=== PATIENT | female | born 1980 | race Caucasian/White ===

== ENCOUNTER 2016-11-21 14:01 | Emergency (ER) | payer OTHER, MEDICARE ==
[~2016-11-21] VITALS: Ht 154.9 cm; Wt 57.0 kg
[~2016-11-21 14:01] MED LIST: HYDR-3307 PO; NAPR500T PO; PYRI60TA2 PO
[2016-11-21] MEDS ORDERED: ONDANSETRON 2MG/ML, 2ML ONE (14:55)
[2016-11-21] MEDS ORDERED: SODIUM CHLORIDE 0.9% 1,000ML IVBOLUS ONE (15:00)
[2016-11-21] MEDS ORDERED: SODIUM CHLORIDE FLUSH 10ML SYR IVF ONE (15:00)
[2016-11-21] MEDS ORDERED: ONDANSETRON 2MG/ML, 2ML IVPush ONE (15:00)
[2016-11-21 15:25] LABS: ASPARTATE AMINO TRANSFERASE 10 U/L (15-37); BLOOD UREA NITROGEN 15 mg/dL (7-18)
[2016-11-21] MEDS ORDERED: KETOROLAC 30 MG/1 ML IVPush ONE (15:30)
[2016-11-21 15:31] LABS: IS PT STATUS REG ER OR PRE ER? YES
[2016-11-21] MEDS ORDERED: KETOROLAC 30 MG/1 ML ONE (15:34)
[2016-11-21 15:56] LABS: HEMOGLOBIN 14.2 g/dL (11.7-16.4)
[2016-11-21 16:37] LABS: HCG UR OBC PASS
[2016-11-21] MEDS ORDERED: OMNIPAQUE 350 MG/ML, 100ML BOTTLE ONE (17:03)
[2016-11-21 18:06] VITALS: BP 102/80
== END 2016-11-21 18:10 | disposition home or self-care (01) ==
LOC: ED 18:04
DX: R06.00 Dyspnea, unspecified (principal); M79.604 Pain in right leg; R06.02 Shortness of breath; M25.511 Pain in right shoulder; R07.9 Chest pain, unspecified; Z88.8 Allergy status to other drugs, medicaments and biological substances; F12.90 Cannabis use, unspecified, uncomplicated
CPT/HCPCS: 36415; 71010; 71275; 80053; 81003; 81025; 83880; 84484; 85025; 85610; 93005; 93971; 96374; 96375; 99285; J1885; J2405; J7030; J7512; Q9967

== ENCOUNTER → 2017-02-27 | Outpatient (CLI) | payer OTHER, MEDICARE ==
[~2017-02-27] MED LIST changes: +FENTANYL PF 100 MCG/2ML ONE; +FLUMAZENIL 0.1 MG/1 ML, 5ML ONE; +GADOBUTROL 7.5 MMOL/7.5 ML PFS ONE; +MIDAZOLAM 1 MG/ML, 5ML ONE
== END | disposition home or self-care (01) ==
LOC: RAD 08:26
PROVIDERS: ATTEND Psychiatry & Neurology Neurology
DX: Q04.8 Other specified congenital malformations of brain (principal); Z98.890 Other specified postprocedural states
CPT/HCPCS: 70553; 99156; A9585; J2250; J3010

== ENCOUNTER 2017-07-23 11:59 | Emergency (ER) | payer OTHER, MEDICARE ==
[~2017-07-23] VITALS: Ht 154.9 cm; Wt 54.5 kg
[~2017-07-23 11:59] MED LIST changes: -FENTANYL PF 100 MCG/2ML ONE; -FLUMAZENIL 0.1 MG/1 ML, 5ML ONE; -GADOBUTROL 7.5 MMOL/7.5 ML PFS ONE; -MIDAZOLAM 1 MG/ML, 5ML ONE
[2017-07-23] MEDS ORDERED: DIPHENHYDRAMINE 50 MG/ML, 1ML IVPush ONE (13:00)
[2017-07-23] MEDS ORDERED: KETOROLAC 30 MG/1 ML IVPush ONE (13:00)
[2017-07-23] MEDS ORDERED: SODIUM CHLORIDE 0.9% 1,000ML IVBOLUS ONE (13:00)
[2017-07-23] MEDS ORDERED: METOCLOPRAMIDE 5 MG/ML, 2ML IVPush ONE (13:00)
[2017-07-23] MEDS ORDERED: SODIUM CHLORIDE FLUSH 10ML SYR IVF ONE (13:00)
[2017-07-23 13:26] LABS: HEMATOCRIT 43.1 % (34.6-47.8); HEMOGLOBIN 14.4 g/dL (11.7-16.4); WHITE BLOOD COUNT 11.6 x10^3/uL (3.4-10)
[2017-07-23 13:34] LABS: ASPARTATE AMINO TRANSFERASE 10 U/L (15-37); BLOOD UREA NITROGEN 11 mg/dL (7-18)
[2017-07-23 13:39] LABS: IS PT STATUS REG ER OR PRE ER? YES
[2017-07-23] MEDS ORDERED: METOCLOPRAMIDE 5 MG/ML, 2ML ONE (14:13)
[2017-07-23] MEDS ORDERED: DIPHENHYDRAMINE 50 MG/ML, 1ML ONE (14:13)
[2017-07-23] MEDS ORDERED: KETOROLAC 30 MG/1 ML ONE (14:13)
[2017-07-23] MEDS ORDERED: OMNIPAQUE 350 MG/ML, 100ML BOTTLE ONE (15:24)
[2017-07-23] MEDS ORDERED: MAALOX/HYOSCYAMINE/LIDOCAINE 45 ML BTL ONE (15:58)
[2017-07-23] MEDS ORDERED: MAALOX/HYOSCYAMINE/LIDOCAINE 45 ML BTL PO ONE (16:00)
[2017-07-23 16:13] VITALS: BP 109/72
== END 2017-07-23 16:23 | disposition home or self-care (01) ==
LOC: ED 15:59
DX: R07.89 Other chest pain (principal); G70.00 Myasthenia gravis without (acute) exacerbation; R53.1 Weakness; Z98.890 Other specified postprocedural states
CPT/HCPCS: 36415; 70450; 71010; 71275; 80053; 83880; 84484; 84703; 85025; 85610; 85730; 93005; 93970; 96361; 96374; 96375; 99285; J1200; J1885; J2765; J7030; Q9967